=== PATIENT | female | born 1950 | race African-American/Black ===

== ENCOUNTER 2018-09-07 09:29 | Outpatient (CLI) | payer MEDICARE ==
--- NOTE | 2018-09-07 10:57 | XRay Report ---
BILATERAL SHOULDERS, 3 VIEWS History: Pain in left shoulder. Findings: There is borderline bone mineralization. No osseous abnormality or joint pathology is appreciated in either shoulder. The soft tissues are unremarkable. Impression: Borderline osteopenia. Unremarkable shoulders.
--- NOTE | 2018-09-07 12:50 | Mammography Report ---
BONE DEXA:09/07/18 09:29:00 CLINICAL: Postmenopausal. Osteoporosis. COMPARISON: 07/10/15 TECHNIQUE: Two site bone DEXA performed on an Hologic scanner. FINDINGS: The average BMD of the lumbar spine L1-L4 is 0.486g/cm squared with a T-score of -5.1 and a Z-score of -3.1. This compares to 0.470g/cm squared on the last exam and represents a +3.6% change from the previous baseline. The average BMD of the left hip is 0.576g/cm squared with a T-score of -3.0 and a Z-score of -1.6. This compares to 0.512g/cm squared on the last exam and represents a +12.5% change from the previous baseline. IMPRESSION: 1. WHO classification: Osteoporosis with high fracture risk based on both spine and left hip measurements. 2. A marked improvement in left hip BMD and a more moderate improvement in spine BMD compared to the last exam. RECOMMENDATION: Clinical correlation and routine screening. DEFINITIONS: BMD = Bone Mineral Density T-score = BMD related to mean peak bone mass of young adult (mean expressed in Standard Deviation) Z-score = Age matched BMD expressed in SD World Health Organization (WHO) Diagnostic Criteria Normal T-score > -1 SD Osteopenia T-score between -1 and -2.4 SD Osteoporosis T-score -2.5 SD or below NOTE: BMD is not the only risk factor for fracture; also consider factors such as the patient's age, risk of falling, previous osteoporotic fracture, family history of osteoporotic fractures, current smoker, and low body weight. Z-scores are not calculated if >80 years of age.
== END 2018-09-07 09:30 | disposition home or self-care (01) ==
LOC: MAMMO 09:29
PROVIDERS: ATTEND Family Medicine
DX: M81.0 Age-related osteoporosis without current pathological fracture (principal); M25.512 Pain in left shoulder; Z78.0 Asymptomatic menopausal state
CPT/HCPCS: 77080